=== PATIENT | male | born 1950 | race Caucasian/White ===

== ENCOUNTER 2019-02-26 10:53 | Inpatient (IN) | payer MEDICARE, MEDICAID ==
[~2019-02-26] VITALS: Ht 180.3 cm; Wt 234.0 kg
--- NOTE | 2019-02-26 14:38 | NUR ---
Patient up to room. Patient transferred from wheelchair to bed with the assist of 7 nurses and a lift. Patient weighs 230 kg (507#). Patient assessment will be completed after Mari completes initial vitals. Patient report received from KAITLYNN Ngo at [facility]. Patient oriented to room.
--- NOTE | 2019-02-26 16:00 | NUR ---
Patient assessment and admission complete. Patient is a poor historian and said "no" to many questions or "i don't know" or "if i do then I didnt know about it". Patient denies being in current pain. overall assessment was difficult to complete. Heart and lung sounds are very difficult to hear due to massive obesity/size, sounds are present but very distant. Radial pulses were difficult to palpate. patient has many skin issues. Generalized edema all over. BLE redness, cellulits (may be healing). A couple of scabs and open sores on BLE. Heels and feet are no issue. Heels floated with boots on. BUE bruising. Bottom is reddened, no sores noticed. Under folds of abdomen, irritation, redness, powder like substance (from snf?). Some breaks in skin in folds of abdomen. Patient has redness and breaks in skin in folds of skin in groin area. Patient is a multiple person assist. Difficult to turn, incontinent, difficult to lift folds of skin as well. Patient is cooperative with cares. call light within reach. no other needs at this time.
[2019-02-26 16:13] VITALS: BP 79/40; PULSE 52
[2019-02-26] MEDS ORDERED: LIPITOR 10MG10 MG PO (18:14)
[2019-02-26] MEDS ORDERED: PROTONIX20 MG PO (18:14)
[2019-02-26] MEDS ORDERED: LASIX 40MG TABL40 MG PO (18:15)
[2019-02-26] MEDS ORDERED: JANUVIA50 MG PO (18:15)
[2019-02-26] MEDS ORDERED: LEVOXYL0.125 MG PO (18:16)
[2019-02-26] MEDS ORDERED: FLOMAX 0.40.4 MG/CAP (18:16)
[2019-02-26] MEDS ORDERED: SODIUM BICARBO650 MG PO (18:17)
[2019-02-26] MEDS ORDERED: THERA-M W/MINER1 TAB PO (18:17)
[2019-02-26] MEDS ORDERED: TYLENOL 325MG325 MG PO (18:17)
[2019-02-26] MEDS ORDERED: IRON TABLETS325 MG PO (18:18)
[2019-02-26] MEDS ORDERED: NOVOLOG 100U100 U/M1 (18:19)
[2019-02-26] MEDS ORDERED: ALBUTEROL0.83 MG/ML IH (18:20)
--- NOTE | 2019-02-26 18:45 | NUR ---
[employer] Specialist was able to start IV in patients RFA.
[2019-02-26 19:50] VITALS: BP 81/43; PULSE 57; TEMP 98.2
--- NOTE | 2019-02-26 20:05 | NUR ---
Report given to KAITLYNN Arana. patient in bed eating dinner. kaitlynn ivey completed med rec. Dr. Martinez to see patient around [id number]. denies other needs at this time.
[2019-02-27] VITALS (12 sets, daily range): BP systolic 73–90; BP diastolic 28–52; PULSE 55–143; TEMP 97.9–98.6
[2019-02-27 07:04] LABS: EOS # 0.1 (0.0-0.7); EOS % 2.6 % (0-4.0); GRAN # 3.6 (1.4-6.5); GRAN % 78.8 % (42.2-75.2); LYMPH # 0.4 (1.2-3.4); LYMPH % 9.2 % (20.0-51.0); MEAN CELL VOLUME 103 fl (80.0-100.0); MEAN CORPUSCULAR HGB CONC 30 g/dl (33.0-37.0); MEAN PLATELET VOLUME 12.8 fl (7.4-10.4); MONO # 0.4 (0.1-0.6); MONO % 9.2 % (1.7-9.3); PLATELET COUNT 90 K/mm3 (130-400); RED BLOOD COUNT 2.76 M/mm3 (4.20-5.60); REDCELL DISTRIBUTION WIDTH-CV 19.9 % (11.5-14.5)
[2019-02-27 07:06] LABS: HEMATOCRIT 28.4 % (42.0-52.0); HEMOGLOBIN 8.5 g/dl (13.5-18.0); MEAN CORPUSCULAR HEMOGLOBIN 31 pg (27.0-31.0)
[2019-02-27 07:19] LABS: ALBUMIN 2.9 gm/dL (3.5-5.0); CALCIUM 8.5 mg/dL (8.4-10.2); PHOSPHOROUS 6.2 mg/dL (2.5-4.5); POTASSIUM 5.2 mmol/L (3.4-5.0)
--- NOTE | 2019-02-27 07:27 | NUR ---
Received report from Victoria Arana RN
[2019-02-27 07:28] LABS: CREATININE, serum 4.05 (0.66-1.25)
[2019-02-27 07:35] LABS: IRON,SERUM 40 ug/dL (35-150)
[2019-02-27 07:45] LABS: TOTAL IRON BINDING CAPACITY 265 ug/dL (261-462)
[2019-02-27 07:46] LABS: TSH w REFLEX 1.61 uIU/mL (0.465-4.680)
[2019-02-27 08:07] LABS: FERRITIN 193 ng/mL (18-464)
--- NOTE | 2019-02-27 16:37 | NUR ---
MALI met with the patient to discuss discharge plan. The patient resides at [facility] for long-term care. The patient reports that he plans to return back there upon discharge. MALI presented and explained the patient choice form. The patient signed and he was provided a copy. The patient's PCP is Dr. Mary Sage. He does not have advanced directives in EMR, but states the believes his sister is his DPOA-HC. MALI attempted to contact Katerina at [facility]. MALI left a voicemail. MALI faxed updates to [facility]. MALI to continue to follow.
--- NOTE | 2019-02-27 19:23 | NUR ---
Pt resting comfortably in the bed, Gabriel catheter placement was tried without success, contacted Dr Martinez and he said to consult Urology, Urology container repairer consulted and attempted to catherize Pt in room, determined that it would need to be inserted in the OR, consent signed by Pt for procedure. VS g=have remained stable during the shift with no C/O pain.
--- NOTE | 2019-02-27 22:19 | NUR ---
PATIENT BACK ON FLOOR FROM [facility]AVING FUNG PLACED BY DR SOTOMAYOR UNDER IV SEDATION. UPON ARRIVAL TO FLOOR PATIENT A/O X 4. DENIES C/O OF PAIN. SEE FLOWSHEET FOR VITAL SIGHNS OBTAINED. ORDER RECEIVED FOR ROCEPHIN 2 GRAMS X ONE DOSE.
[2019-02-27 23:42] LABS: MUCOUS Present /lpf; PH 5 (5-8); SQUAMOUS EPITHELIAL 0-2 /hpf; URINE APPEARANCE Hazy; URINE BACTERIA None Seen /hpf; URINE BILIRUBIN Negative (NEGATIVE); URINE BLOOD 3+ (NEGATIVE); URINE COLOR Yellow; URINE GLUCOSE Negative (NEGATIVE); URINE KETONE Negative (NEGATIVE); URINE LEUKOCYTE ESTERASE 3+ (NEGATIVE); URINE NITRATE Negative (NEGATIVE); URINE PROTEIN(semi-quant) Negative (NEGATIVE); URINE RBC >50 /hpf; URINE UROBILINOGEN Negative (NEGATIVE); URINE WBC 20-50 /hpf
[2019-02-27 23:46] LABS: COLLECTION METHOD CATHETER
[2019-02-28 00:04] LABS: CREATININE, serum 4.02 (0.66-1.25); FRACTIONAL EXCRETION OF NA+ 5.3 %
[2019-02-28 00:11] LABS: URINE PROTEIN:CREAT RATIO 0.26 (0.00-0.14)
--- NOTE | 2019-02-28 01:17 | NUR ---
DIET ORDER CANCELLED BY DR SOTOMAYOR DURING TRANSFER FROM SURGERY BACK TO FLOOR. VERBAL TELEPHONE COMMUNICATION THAT HE WAS RESUMING ALL ORDERS PREVIOUSLY ENTERED BY DR SINGLETARY. ADA DIET REENTERED PREVIOUSLY ENTERED BY DR. SOTOMAYOR.
[2019-02-28 01:45] VITALS: PULSE 68
[2019-02-28 04:47] VITALS: BP 82/29; PULSE 82
[2019-02-28 06:14] LABS: BASO % 0.2 % (0.0-2.0); EOS # 0.1 (0.0-0.7); EOS % 1.8 % (0-4.0); LYMPH # 0.4 (1.2-3.4); LYMPH % 7.7 % (20.0-51.0); MEAN CELL VOLUME 103 fl (80.0-100.0); MEAN CORPUSCULAR HGB CONC 30 g/dl (33.0-37.0); MEAN PLATELET VOLUME 12.7 fl (7.4-10.4); MONO # 0.4 (0.1-0.6); MONO % 8.9 % (1.7-9.3); PLATELET COUNT 91 K/mm3 (130-400); RED BLOOD COUNT 2.75 M/mm3 (4.20-5.60); REDCELL DISTRIBUTION WIDTH-CV 20.3 % (11.5-14.5)
[2019-02-28 06:20] LABS: ALBUMIN 2.8 gm/dL (3.5-5.0); CALCIUM 8.7 mg/dL (8.4-10.2); CREATININE, serum 4.21 (0.66-1.25); HEMATOCRIT 28.4 % (42.0-52.0); HEMOGLOBIN 8.6 g/dl (13.5-18.0); MEAN CORPUSCULAR HEMOGLOBIN 31 pg (27.0-31.0); PHOSPHOROUS 6.3 mg/dL (2.5-4.5); POTASSIUM 5.4 mmol/L (3.4-5.0)
[2019-02-28 07:13] VITALS: BP 88/39; PULSE 88; TEMP 97.9
--- NOTE | 2019-02-28 10:10 | NUR ---
Pt in bed watching TV, complete bed change done, meplex placed on sacral area, no C/O pain at this time, shift assessmnets complete, left Pt call light in reach, bed in lowest position.
[2019-02-28 10:59] VITALS: BP 71/35; PULSE 85; TEMP 98.5
--- NOTE | 2019-02-28 12:41 | NUR ---
Pt arrived to floor from [employer], no C/O pain at insertion site, very sleepy at this thim and resting comfortably in bed.
--- NOTE | 2019-02-28 15:08 | NUR ---
MALI faxed updates to Katerina at [facility].
--- NOTE | 2019-02-28 18:27 | NUR ---
Pt resting in bed during the day, he had a complete bed change during the shift, no C/O pain, Pt continues to have dyspnea at rest, Vs have been stable with low BPs.
[2019-02-28 18:37] VITALS: BP 93/43; PULSE 85; TEMP 97.7
[2019-02-28 20:04] VITALS: BP 73/36; PULSE 77; TEMP 96
--- NOTE | 2019-02-28 20:50 | NUR ---
Shift assessment complete. Pt resting in bed, awake, a&o, cooperative c cares. Pt denies pain or other c/o at this time. INT patent. Tele in place. Gabriel to DD. O2 per NC. Pt denies needs at this time. Call light in reach, will monitor.
[2019-03-01] VITALS (7 sets, daily range): BP systolic 75–89; BP diastolic 24–46; PULSE 61–97; TEMP 96–98
[2019-03-01 06:09] LABS: BASO % 0.2 % (0.0-2.0); EOS # 0.1 (0.0-0.7); EOS % 2.2 % (0-4.0); GRAN # 3.6 (1.4-6.5); GRAN % 77.4 % (42.2-75.2); LYMPH # 0.5 (1.2-3.4); LYMPH % 9.9 % (20.0-51.0); MEAN CELL VOLUME 103 fl (80.0-100.0); MEAN CORPUSCULAR HGB CONC 31 g/dl (33.0-37.0); MEAN PLATELET VOLUME 12.8 fl (7.4-10.4); MONO # 0.5 (0.1-0.6); MONO % 10.1 % (1.7-9.3); PLATELET COUNT 78 K/mm3 (130-400); RED BLOOD COUNT 2.71 M/mm3 (4.20-5.60); REDCELL DISTRIBUTION WIDTH-CV 20.2 % (11.5-14.5)
[2019-03-01 06:10] LABS: HEMATOCRIT 27.9 % (42.0-52.0); HEMOGLOBIN 8.5 g/dl (13.5-18.0); MEAN CORPUSCULAR HEMOGLOBIN 31 pg (27.0-31.0)
--- NOTE | 2019-03-01 06:11 | NUR ---
Pt resting in bed, condition unchanged. Pt has rested well c very few needs this shift. SENA aGbriel et tele remain s complication. No needs at this time. Call light in reach.
[2019-03-01 06:17] LABS: ALBUMIN 2.8 gm/dL (3.5-5.0); CALCIUM 8.6 mg/dL (8.4-10.2); CREATININE, serum 3.97 (0.66-1.25); PHOSPHOROUS 5.9 mg/dL (2.5-4.5); POTASSIUM 5.4 mmol/L (3.4-5.0)
--- NOTE | 2019-03-01 13:46 | NUR ---
Performed post void bladder scan on Pt, Pt had 83ml residual in bladder.
--- NOTE | 2019-03-01 18:14 | NUR ---
Pt has been resting in the room, his urine has lightened to buffy with some sediment, output has been low with 800ml at about 1800. VS have remained stable with no C/O pain.
--- NOTE | 2019-03-01 20:50 | NUR ---
Shift assessment complete. Pt resting in bed, awake, a&o, cooperative c cares. Pt denies pain or any other c/o at this time. IV patent. Harvey to SONIA. O2 per NC. Pt denies needs. Call light in reach, will monitor.
[2019-03-02 03:46] VITALS: BP 88/33; PULSE 62
--- NOTE | 2019-03-02 05:01 | NUR ---
Pt resting in bed, condition unchanged. Pt has rested well this shift c very few needs. Denies needs at this time. Call light in reach.
--- NOTE | 2019-03-02 06:49 | NUR ---
Received report from KAITLYNN Roberts
[2019-03-02 08:38] VITALS: BP 86/38; PULSE 56; TEMP 98.9
[2019-03-02 08:42] LABS: BASO % 0.2 % (0.0-2.0); EOS # 0.2 (0.0-0.7); EOS % 3.2 % (0-4.0); GRAN % 75.6 % (42.2-75.2); LYMPH # 0.6 (1.2-3.4); LYMPH % 10.5 % (20.0-51.0); MEAN CELL VOLUME 103 fl (80.0-100.0); MEAN CORPUSCULAR HGB CONC 30 g/dl (33.0-37.0); MEAN PLATELET VOLUME 12.6 fl (7.4-10.4); MONO # 0.5 (0.1-0.6); MONO % 9.9 % (1.7-9.3); PLATELET COUNT 84 K/mm3 (130-400); RED BLOOD COUNT 2.73 M/mm3 (4.20-5.60)
[2019-03-02 08:44] LABS: HEMATOCRIT 28.1 % (42.0-52.0); HEMOGLOBIN 8.5 g/dl (13.5-18.0); MEAN CORPUSCULAR HEMOGLOBIN 31 pg (27.0-31.0)
[2019-03-02 08:54] LABS: ALBUMIN 2.8 gm/dL (3.5-5.0); CALCIUM 8.6 mg/dL (8.4-10.2); CREATININE, serum 3.75 (0.66-1.25); PHOSPHOROUS 5.5 mg/dL (2.5-4.5); POTASSIUM 5.3 mmol/L (3.4-5.0)
[2019-03-02 10:38] VITALS: BP 84/36; PULSE 70; TEMP 98.4
[2019-03-02 15:55] VITALS: BP 99/72; PULSE 72; TEMP 98.2
[2019-03-02 19:09] VITALS: BP 103/46; PULSE 66; TEMP 98.3
--- NOTE | 2019-03-02 20:10 | NUR ---
Shift assessment complete. Pt resting in bed, awake, a&o, cooperative c cares. Pt denies pain or other c/o at this time. INT patent. Tele in place. Harvey martinez DD. Pt s needs. Call light in reach, will monitor.
[2019-03-03 00:07] VITALS: BP 88/47; PULSE 81; TEMP 98.2
--- NOTE | 2019-03-03 00:08 | NUR ---
PT REFUSED SVN
[2019-03-03 03:21] VITALS: BP 105/52; PULSE 68; TEMP 98.1
--- NOTE | 2019-03-03 04:37 | NUR ---
Pt resting in bed, condition unchanged. Pt has rested well this shift c very few needs. Denies needs at this time. Call light in reach.
[2019-03-03 06:58] LABS: BASO % 0.2 % (0.0-2.0); EOS # 0.3 (0.0-0.7); EOS % 4.5 % (0-4.0); GRAN # 4.5 (1.4-6.5); GRAN % 78.4 % (42.2-75.2); LYMPH # 0.5 (1.2-3.4); LYMPH % 7.8 % (20.0-51.0); MEAN CELL VOLUME 102 fl (80.0-100.0); MEAN CORPUSCULAR HGB CONC 30 g/dl (33.0-37.0); MEAN PLATELET VOLUME 11.7 fl (7.4-10.4); MONO # 0.5 (0.1-0.6); MONO % 8.8 % (1.7-9.3); PLATELET COUNT 98 K/mm3 (130-400); RED BLOOD COUNT 2.93 M/mm3 (4.20-5.60); REDCELL DISTRIBUTION WIDTH-CV 19.7 % (11.5-14.5)
[2019-03-03 07:02] LABS: MEAN CORPUSCULAR HEMOGLOBIN 31 pg (27.0-31.0)
[2019-03-03 07:08] LABS: CALCIUM 9.3 mg/dL (8.4-10.2); CREATININE, serum 3.41 (0.66-1.25); PHOSPHOROUS 5.3 mg/dL (2.5-4.5); POTASSIUM 5.1 mmol/L (3.4-5.0)
[2019-03-03 07:37] VITALS: BP 83/37; PULSE 52; TEMP 98.1
--- NOTE | 2019-03-03 09:54 | NUR ---
Pt in bed resting, no C/O pain at this time, shift assessments complete, left Pt call light in reach, bed in lowest position.
[2019-03-03 11:29] LABS: KAPPA FREE LIGHT CHAIN-SERUM 40.6 mg/dL (()); LAMDA FREE LIGHT CHAIN SERUM 8.17 mg/dL (())
[2019-03-03 11:41] VITALS: BP 105/64; PULSE 64; TEMP 98
--- NOTE | 2019-03-03 13:18 | NUR ---
The patient is to discharge today, 03/03, back to [facility] for a skilled stay. Transportation was set for 1500, via [facility]. MALI informed the patient and patient's nurse. They were both in agreeance. MALI also presented and explained the IM form to the patient. The patient verbalized understanding, signed, and he was provided a copy. No additional needs at this time.
--- NOTE | 2019-03-03 15:31 | NUR ---
[facility]'s transport arrived and they did not have a big enough wheelchair for the patient. Floor Supervisors were notified. Transport is to be provided by [facility]. Transportation was set for 1600. SW informed Katerina at [facility]. No additional needs at this time.
--- NOTE | 2019-03-03 16:14 | NUR ---
Pt discharged to [facility], transported via EMS.
== END 2019-03-03 16:15 | disposition home or self-care (01) | DRG 683 ==
LOC: MEDICAL 10:53
PROVIDERS: Urology; ADMIT Internal Medicine Nephrology
PROC: 0T9B80Z Drainage of Bladder with Drainage Device, Via Natural or Artificial Opening Endoscopic (ICD-10-PCS; principal; 2019-02-27 20:00)
DX: N17.9 Acute kidney failure, unspecified (principal); I12.0 Hypertensive chronic kidney disease with stage 5 chronic kidney disease or end stage renal disease; Z68.45 Body mass index [BMI] 70 or greater, adult; D61.818 Other pancytopenia; E87.2 Acidosis; N18.5 Chronic kidney disease, stage 5; N36.8 Other specified disorders of urethra; N35.919 Unspecified urethral stricture, male, unspecified site; D63.1 Anemia in chronic kidney disease; E66.01 Morbid (severe) obesity due to excess calories; E78.5 Hyperlipidemia, unspecified; E87.5 Hyperkalemia; I48.91 Unspecified atrial fibrillation; E11.21 Type 2 diabetes mellitus with diabetic nephropathy; E11.22 Type 2 diabetes mellitus with diabetic chronic kidney disease; I95.9 Hypotension, unspecified; E03.9 Hypothyroidism, unspecified; Z79.4 Long term (current) use of insulin; Z86.73 Personal history of transient ischemic attack (TIA), and cerebral infarction without residual deficits; Z87.891 Personal history of nicotine dependence
CPT/HCPCS: C1769; J0696; J1815; J2704; J2916